=== PATIENT | female | born 1995 | race Hispanic/Latino ===

== ENCOUNTER 2017-04-08 07:46 | Observation (INO) | payer OTHER ==
[2017-04-08] VITALS (13 sets, daily range): BP systolic 120–141; BP diastolic 61–85
[~2017-04-08] VITALS: Ht 157.5 cm; Wt 104.8 kg
[~2017-04-08 07:46] MED LIST: IBUPROFEN600 MG PO; METFORMIN500 MG PO; PRE-NATAL PO
[2017-04-08 08:39] LABS: BARBITURATES NEGATIVE (NEGATIVE); COCAINE NEGATIVE (NEGATIVE); METHADONE NEGATIVE (NEGATIVE); OXCYCODONE NEGATIVE (NEGATIVE); TETRAHYDROCANNABIONOL NEGATIVE (NEGATIVE); TRICYLIC ANTIDEPRESSANTS NEGATIVE (NEGATIVE)
[2017-04-08 08:40] LABS: URINE BILIRUBIN - DIPSTICK NEGATIVE (NEGATIVE); URINE BLOOD DIPSTICK NEGATIVE (NEGATIVE); URINE CLARITY CLEAR; URINE COLOR YELLOW; URINE GLUCOSE - DIPSTICK NEGATIVE (NEGATIVE); URINE KETONE NEGATIVE (NEGATIVE); URINE LEUK ESTERASE NEGATIVE (NEGATIVE); URINE NITRITE - DIPSTICK NEGATIVE (Negative); URINE PH 5.5 (4.5-8.0); URINE PROTEIN - DIPSTICK 100 mg/dL (NEG-TRACE); URINE SPECIFIC GRAVITY >=1.030; URINE UROBILINOGEN - DIPSTICK 0.2 E.U./dL (0.2)
[2017-04-08] MEDS ORDERED: FERR SULFATE325 MG PO (09:25)
[2017-04-08 09:27] LABS: URINE SQUAMOUS EPITHELIAL CELL FEW EPI/hpf (0-FEW)
[2017-04-08 10:14] LABS: HEMATOCRIT 33.1 % (37.0-47.0); HEMOGLOBIN 11.1 g/dl (12.0-16.0); IMMATURE GRANULOCYTES 0.6 % (0.0-1.0); MEAN CELL VOLUME 84.9 fL CALC (80.0-100.0); MEAN CORPUSCULAR HGB 28.5 pG CALC (26.0-32.0); MEAN CORPUSCULAR HGB CONC 33.5 g/L CALC (32.0-36.0); NEUT# 7.26 thou/uL (2.00-7.15); RED BLOOD COUNT 3.9 mill/uL (4.20-5.60); RED CELL DISTRI WIDTH 14.1 % (11.5-15.5)
[2017-04-08 10:34] LABS: ALBUMIN 3.3 g/dL (3.2-5.0); ALKALINE PHOSPHATASE 280 u/l (38-126); ANION GAP 13 (6-22 (CALC)); BILIRUBIN, TOTAL 0.5 mg/dL (0.0-1.4); BUN 10 mg/dL (7-17); BUN/CREATININE RATIO 23 (12-20 (CALC)); CALCIUM 9.2 mg/dL (8.4-10.2); CARBON DIOXIDE 21 mmol/l (22-30); CHLORIDE 106 mmol/l (95-108); CREATININE 0.4 mg/dL (0.5-1.0); GFR > 60 ML/MIN (>=60 (CALC)); GFR FOR AFR.AMER. > 60 ML/MIN (>=60 (CALC)); GLUCOSE 89 mg/dL (65-105); POTASSIUM 4.1 mmol/l (3.5-5.1); SGOT/AST 23 u/l (14-36); SGPT/ALT 27 u/l (9-52); SODIUM 136 mmol/l (137-146); TOTAL PROTEIN 6.2 g/dL (6.3-8.2)
== END 2017-04-08 16:00 | disposition home or self-care (01) | DRG 781 ==
LOC: OB 07:46
PROC: 3E0P3VZ Introduction of Hormone into Female Reproductive, Percutaneous Approach (ICD-10-PCS; principal; 2017-04-08)
DX: O24.415 Gestational diabetes mellitus in pregnancy, controlled by oral hypoglycemic drugs (principal); O99.213 Obesity complicating pregnancy, third trimester; E66.01 Morbid (severe) obesity due to excess calories; O61.0 Failed medical induction of labor; Z3A.39 39 weeks gestation of pregnancy
CPT/HCPCS: G0378

== ENCOUNTER 2017-04-17 10:25 | Inpatient (IN) | payer OTHER ==
[~2017-04-17] VITALS: Ht 154.9 cm; Wt 104.0 kg
[2017-04-17] VITALS (23 sets, daily range): BP systolic 114–167; BP diastolic 41–94
--- NOTE | 2017-04-17 10:10 | NUR ---
PATIENT TO UNIT FROM HOME IN STABLE CONDITION ACCOMPANIED BY HER S/O. WEIGHT AND HEIGHT OBTAINED. HISTORY PER PART A. STATES HER CONTRACTIONS STARTED YESTERDAY BUT GOT STRONGER THIS AM AT 0500. WILL ASSESS AND NOTIFY MD AGUILERA.
[~2017-04-17 10:25] MED LIST changes: +FERR SULFATE325 MG PO
--- NOTE | 2017-04-17 11:48 | NUR ---
contractions noted. sve done as charted. dr harris notified via cell phone. new orders received to be commenced.
[2017-04-17 12:54] LABS: HEMATOCRIT 35.9 % (37.0-47.0); IMMATURE GRANULOCYTES 0.8 % (0.0-1.0); MEAN CELL VOLUME 85.9 fL CALC (80.0-100.0); MEAN CORPUSCULAR HGB 28.7 pG CALC (26.0-32.0); MEAN CORPUSCULAR HGB CONC 33.4 g/L CALC (32.0-36.0); NEUT# 7.12 thou/uL (2.00-7.15); RED BLOOD COUNT 4.18 mill/uL (4.20-5.60)
[2017-04-17 13:11] LABS: ALBUMIN 3.6 g/dL (3.2-5.0); ALKALINE PHOSPHATASE 333 u/l (38-126); ANION GAP 14 (6-22 (CALC)); BILIRUBIN, TOTAL 0.5 mg/dL (0.0-1.4); BUN 10 mg/dL (7-17); BUN/CREATININE RATIO 23 (12-20 (CALC)); CALCIUM 9.3 mg/dL (8.4-10.2); CARBON DIOXIDE 20 mmol/l (22-30); CHLORIDE 107 mmol/l (95-108); CREATININE 0.4 mg/dL (0.5-1.0); GFR > 60 ML/MIN (>=60 (CALC)); GFR FOR AFR.AMER. > 60 ML/MIN (>=60 (CALC)); GLUCOSE 99 mg/dL (65-105); POTASSIUM 4.5 mmol/l (3.5-5.1); SGOT/AST 30 u/l (14-36); SGPT/ALT 35 u/l (9-52); SODIUM 137 mmol/l (137-146); TOTAL PROTEIN 6.8 g/dL (6.3-8.2)
--- NOTE | 2017-04-17 13:53 | NUR ---
LATE DECELERATION NOTED AFTER VAGINAL EXAM AND AROM. DR ON UNIT AWARE. WILL CONTINUE TO OBSERVE.
--- NOTE | 2017-04-17 15:35 | NUR ---
pain 10/10. medicated for same as requested. effects and side effects discussed prior to administration.
--- NOTE | 2017-04-17 16:52 | NUR ---
sve done to assess labor progress. same as last exam. dr harris to be notified.
--- NOTE | 2017-04-17 17:05 | NUR ---
DR RUCKER NOTIFIED OF SVE. NEW ORDERS RECEIVED TO BE COMMENCED. OR STAFF NOTIFIED VIA NURSING STATION JAILER OF PENDING SECTION DELIVERY.
--- NOTE | 2017-04-17 17:20 | NUR ---
SHAVE PREP DONE BY MYSELF WITH CLIPPERS. PATIENT TOLERATED SAME WELL.
--- NOTE | 2017-04-17 17:30 | NUR ---
DR RUCKER ON UNIT. SVE SAME LAST. PREOP IVB OF LR COMMENCED. PREOP MEDICATIONS DISCUSSED WITH PATIENT WHO VERBALISE UNDERSTANDING.
--- NOTE | 2017-04-17 17:55 | NUR ---
PREOP MEDS GIVEN. SEE EMAR. PATIENT TAKED TO OR IN WC BY HARBOUR MASTER. SEE DELIVERY ROOM RECORD.
--- NOTE | 2017-04-17 18:50 | NUR ---
REPORT RECEIVED FROM KAYKAY KING RN ON PT STATUS. PT REMAINS IN OR AT THIS TIME.
--- NOTE | 2017-04-17 20:15 | NUR ---
Pt received from PACU jerry mcknight. Transferred to bed with 4 assistance. Scd's remain in place. Contreras catheter draining dark sandi urine. Leg strap in place holding catheter. IV infusing, not on med pump. FF at 2 above umbilicus with moderate rubra, no blood clots noted. 2016: IV tubing placed on med pump at 125cc/hr.
--- NOTE | 2017-04-17 21:45 | NUR ---
Pt remains supine in bed. IV infusing per med pump at 125cc/hr. Contreras catheter continues to drain dark sandi urine. Pt denies pain. Abdominal dressing remains dry and intact. Fundus firm with massage. Significant other remains at bedside. continues to be in nursery under warmer.
--- NOTE | 2017-04-17 23:00 | NUR ---
Pt remains awake. States she cannot sleep. States pain is 4/10 but okay currently. Refuses pain medication. Abdominal dressing drainage noted and marked. FF with moderate rubra, no clots. IV infusing per med pump. Contreras drains dark sandi urine.
[2017-04-18] VITALS (7 sets, daily range): BP systolic 120–143; BP diastolic 47–85
--- NOTE | 2017-04-18 01:42 | NUR ---
0110: VS stable. Temperature 100.3. Pt continues to be slightly nauseated. Takes ice chips. 0142: Toradol given for abdominal pain. See e-mar for details.
[2017-04-18 05:29] LABS: HEMATOCRIT 26.6 % (37.0-47.0); IMMATURE GRANULOCYTES 0.3 % (0.0-1.0); MEAN CELL VOLUME 85.8 fL CALC (80.0-100.0); MEAN CORPUSCULAR HGB CONC 33.8 g/L CALC (32.0-36.0); NEUT# 8.12 thou/uL (2.00-7.15); RED BLOOD COUNT 3.1 mill/uL (4.20-5.60); RED CELL DISTRI WIDTH 14.8 % (11.5-15.5)
--- NOTE | 2017-04-18 05:51 | NUR ---
0500: CBC drawn from Left anticubital without difficulty. VS stable. Linen changed and pericare performed. Pt moves well from side to side. Denies nausea or vomiting. Moderate rubra noted on peripad. No clots. Encouraged to drink po fluids if possible. Voices understanding. 0551: Medicated with Benadryl 50 mg IV for itching.
--- NOTE | 2017-04-18 06:55 | NUR ---
Bedside report given to Merline Powell RN on pt status.
--- NOTE | 2017-04-18 07:45 | NUR ---
patient in bed awake. assessment done as charted. medicated for pain as requested. denies nausea at this time. plan to ambulate, remove berman and shower. patient aware and agrees with plan. no concerns at this time.
--- NOTE | 2017-04-18 09:12 | NUR ---
patient sweating perfusely. accucheck 115mg/dl. temp 98.9. wet washcloth given for cold compress.
--- NOTE | 2017-04-18 09:30 | NUR ---
assisted out of bed. tolerated same well. berman removed. back to bed. no increase in pain. instructed to call for assistance before getting out of bed. patient verbalise understanding. s/o at bedside.
--- NOTE | 2017-04-18 11:35 | NUR ---
sitting up in bed eating lunch. verbalise no concerns at this time. familt at bedside.
--- NOTE | 2017-04-18 12:50 | NUR ---
assisted to restroom. voided without difficulty. tolerated same well. ivf discontinued. ambulation encouraged as tolerated. family at bedside. no concerns at this time.
--- NOTE | 2017-04-18 15:16 | NUR ---
sitting up in bed awake. verbalises pain relief. patient encouraged to ambulate as tolerated and increase oral fluid intake as tolerated.
--- NOTE | 2017-04-18 17:03 | NUR ---
PATIENT SITTING UP IN CHAIR AT BEDSIDE. VITAL SIGNS WNL. NO CONCERNS AT THIS TIME. S/O AT BEDSIDE.
--- NOTE | 2017-04-18 18:55 | NUR ---
in room with family. no concerns. end of shift report given to barbara cooper.
--- NOTE | 2017-04-18 19:00 | NUR ---
REPORT RECEIVED FROM RORO CHEEK. PT IS AWAKE, ALERT AND UP TO BATHROOM WHEN ENTERING. SISTER AT BEDSIDE HOLDING INFANT. CALL LIGHT IN REACH. RECEIVED IN REPORT PT WAS ENCOURAGED TO DRINK PLENTY OF WATER TO HELP MOVE BOWELS. PT WATER STILL FULL. GENTLE ENCOURAGEMENT REITTERATED. WILL CONTINUE TO MONITOR.
--- NOTE | 2017-04-18 23:50 | NUR ---
IN TO CHECK ON PATIENT. IN BED WITH EYES CLOSED, BUT AWAKENS EASILY. VSS. DENIES ANY NEEDS AT THIS TIME.
[2017-04-19 05:12] VITALS: BP 139/86
--- NOTE | 2017-04-19 05:12 | NUR ---
IN TO CHECK ON PATIENT. VS TAKEN. STABLE CHARTED. PT C/O. MEDICATED PER AUG. GIVEN TO HOLD BY NURSERY NURSE. ADVISED PATIENT TO CALL AFTER FEEDING FOR LAB DRAWS. ENCOURAGED TO CONTINUE INCENTIVE SPIROMETRY AND DRINKING FLUIDS. OFFERED TO FRESHEN UP WATER, PT DECLINED.
--- NOTE | 2017-04-19 06:29 | NUR ---
PT SITTING UP IN BED WATCHING TIGR VIDEOS. DENIES ANY NEEDS AT THIS TIME. PT GIVEN PATIENT EDUCATION INFO ON BREAST CARE OF NON MOM. REPORT PREPARED FOR ONCOMING SHIFT.
--- NOTE | 2017-04-19 07:00 | NUR ---
REPORT RECEIVED IN PT ROOM, PT SITS ON SIDE OF BED, S/O AT SIDE.
--- NOTE | 2017-04-19 07:17 | NUR ---
PT MEDICATED FOR PAIN, ENC TO SIP WATER FREQUENTLY, DRINK FLUIDS. PT STATES SHE HAS NO PROBLEM URINATING.
--- NOTE | 2017-04-19 08:00 | NUR ---
PT STATES PAIN MED HELPED, SERVED MEAL.
[2017-04-19 09:30] VITALS: BP 125/71
--- NOTE | 2017-04-19 09:35 | NUR ---
PT SITS IN CHAIR, HOLDING , WATER PROVIDED.
--- NOTE | 2017-04-19 11:35 | NUR ---
PT HAS BEEN OOB IN ROOM, STATES SHE HAS BEEN ABLE TO PASS GAS, ABD SOFT. NOW SITS IN BED.
--- NOTE | 2017-04-19 12:26 | NUR ---
SITS IN BED, MEDICATED FOR PAIN, OFFERED MOTRIN OR LORTAB, PT CHOOSES LORTAB.
[2017-04-19 13:45] VITALS: BP 119/74
--- NOTE | 2017-04-19 13:48 | NUR ---
SITS ON SIDE OF BED, STATES PAIN MED HELPED.
--- NOTE | 2017-04-19 14:33 | NUR ---
SITS IN BED FEEDING .
--- NOTE | 2017-04-19 18:22 | NUR ---
SITS IN CHAIR, HOLDING INFANT, MEDICATED FOR PAIN WITH MOTRIN.
[2017-04-19 18:28] VITALS: BP 130/68
[2017-04-19 19:00] VITALS: BP 133/57
--- NOTE | 2017-04-19 19:00 | NUR ---
RN in for initial assessment, pt changing baby. RN discussed need to ambulate in hallway tonight, pt states has had a bowel movement, pt states pain 4/10 so RN disucssed medication timing, medicated with Lortab and wrote next dose for Motrin and Lortab on white board in her room. Pt busy with baby, RN will assess when blood sugar is due at 2000.
--- NOTE | 2017-04-19 20:05 | NUR ---
Initial shift assessment completed. Pt with low transverse abdominal incision well approximated without redness, swelling or drainage, steri strips in place. Fundus firm at U/2, light rubra lochia without clots. Pain 2/10 after Lortab. VS stable, pt ambulating in room, RN encouraged her to walk in the [place]. Pt caring for baby well.
[2017-04-19 23:06] VITALS: BP 133/68
--- NOTE | 2017-04-20 02:11 | NUR ---
RN in room several times encouraging pt to rest/sleep. Pt still awake, texting or doing something on her phone, watching TV, dealing with the baby. Spouse asleep in pts bed.
--- NOTE | 2017-04-20 05:17 | NUR ---
Pt asleep without distress, baby asleep in crib.
--- NOTE | 2017-04-20 07:20 | NUR ---
SITS IN BED, MEDICATED FOR PAIN. S/O AT SIDE.
[2017-04-20 08:55] VITALS: BP 129/75
--- NOTE | 2017-04-20 09:00 | NUR ---
PT HAS BEEN OOB IN ROOM, STATES SHE HAS BEEN PASSING GAS. ENC TO CONTINUE DRINKING FLUIDS.
--- NOTE | 2017-04-20 09:30 | NUR ---
DR RUCKER IN TO SEE PT, PLAN OF CARE DISCUSSED.
[2017-04-20] MEDS ORDERED: IBUPROFEN600 MG PO (10:15)
[2017-04-20] MEDS ORDERED: LORTAB 7.57.5 MG PO (10:17)
--- NOTE | 2017-04-20 11:30 | NUR ---
PT SITS IN CHAIR.
--- NOTE | 2017-04-20 12:30 | NUR ---
PT PREPARES FOR DISCHARGE.
--- NOTE | 2017-04-20 13:48 | NUR ---
Discharge instructions given and reviewed. Pt. verbalizes understanding. Discharged in good condition via Wheelchair to Home with infant in carseat accompanied by significant other, escorted by Alcira Beltran rn.
== END 2017-04-20 13:48 | disposition home or self-care (01) | DRG 765 ==
LOC: OB 10:25 → OBOP 10:25 → OB 11:48
PROVIDERS: ADMIT Obstetrics & Gynecology; ATTEND Obstetrics & Gynecology
PROC: 10D00Z1 Extraction of Products of Conception, Low, Open Approach (ICD-10-PCS; principal; 2017-04-17)
DX: O24.425 Gestational diabetes mellitus in childbirth, controlled by oral hypoglycemic drugs (principal); Z68.41 Body mass index [BMI] 40.0-44.9, adult; O64.0XX0 Obstructed labor due to incomplete rotation of fetal head, not applicable or unspecified; O77.0 Labor and delivery complicated by meconium in amniotic fluid; O62.1 Secondary uterine inertia; O99.214 Obesity complicating childbirth; E66.9 Obesity, unspecified; Z3A.40 40 weeks gestation of pregnancy; Z37.0 Single live birth
CPT/HCPCS: J2270

== ENCOUNTER 2017-10-31 03:34 | Emergency (ER) | payer SELFPAY ==
[~2017-10-31] VITALS: Ht 154.9 cm; Wt 94.4 kg
[~2017-10-31 03:34] MED LIST changes: +LORTAB 7.57.5 MG PO
[2017-10-31 03:40] VITALS: BP 140/94
[2017-10-31 04:07] LABS: HEMATOCRIT 40.1 % (37.0-47.0); HEMOGLOBIN 13.8 g/dl (12.0-16.0); IMMATURE GRANULOCYTES 0.2 % (0.0-1.0); MEAN CELL VOLUME 83.4 fL CALC (80.0-100.0); MEAN CORPUSCULAR HGB 28.7 pG CALC (26.0-32.0); MEAN CORPUSCULAR HGB CONC 34.4 g/L CALC (32.0-36.0); NEUT# 11.58 thou/uL (2.00-7.15); RED BLOOD COUNT 4.81 mill/uL (4.20-5.60); RED CELL DISTRI WIDTH 12.5 % (11.5-15.5)
[2017-10-31] MEDS ORDERED: AUGMENTIN875TAB PO (04:25)
== END 2017-10-31 04:59 | disposition home or self-care (01) | DRG 153 ==
LOC: ED 03:34
PROVIDERS: Family Medicine
DX: J02.9 Acute pharyngitis, unspecified (principal); R05 Cough; R50.9 Fever, unspecified; R09.81 Nasal congestion

== ENCOUNTER 2017-11-22 02:54 | Emergency (ER) | payer SELFPAY ==
[~2017-11-22] VITALS: Ht 154.9 cm; Wt 92.2 kg
[~2017-11-22 02:54] MED LIST changes: +AUGMENTIN875TAB PO
[2017-11-22] MEDS ORDERED: BENADRYL 50MG C50 MG PO (03:41)
[2017-11-22 04:06] VITALS: BP 130/77
[2017-11-23] MEDS ORDERED: DELTASONE20 MG PO (18:23)
== END 2017-11-22 04:21 | disposition home or self-care (01) | DRG 607 ==
LOC: ED 02:54
DX: L29.9 Pruritus, unspecified (principal); E11.9 Type 2 diabetes mellitus without complications

== ENCOUNTER 2017-11-23 17:59 | Emergency (ER) | payer SELFPAY ==
[~2017-11-23] VITALS: Ht 154.9 cm; Wt 91.4 kg
[~2017-11-23 17:59] MED LIST changes: +BENADRYL 50MG C50 MG PO
[2017-11-23] MEDS ORDERED: DELTASONE20 MG PO (18:23)
[2017-11-23 18:30] VITALS: BP 147/78
== END 2017-11-23 18:34 | disposition home or self-care (01) | DRG 607 ==
LOC: ED 17:59
DX: L23.9 Allergic contact dermatitis, unspecified cause (principal)

== ENCOUNTER 2018-10-28 10:19 | Emergency (ER) | payer SELFPAY ==
[~2018-10-28] VITALS: Ht 154.9 cm; Wt 90.0 kg
[~2018-10-28 10:19] MED LIST changes: +DELTASONE20 MG PO
[2018-10-28] MEDS ORDERED: AMOXICILLIN875 MG PO (11:09)
[2018-10-28 11:20] VITALS: BP 135/74
== END 2018-10-28 11:20 | disposition home or self-care (01) | DRG 153 ==
LOC: ED 10:19
DX: H66.93 Otitis media, unspecified, bilateral (principal); J02.9 Acute pharyngitis, unspecified; R50.9 Fever, unspecified; R05 Cough; E11.9 Type 2 diabetes mellitus without complications

== ENCOUNTER 2019-02-15 16:00 | Emergency (ER) | payer SELFPAY ==
[~2019-02-15] VITALS: Ht 154.9 cm; Wt 85.9 kg
[~2019-02-15 16:00] MED LIST changes: +AMOXICILLIN875 MG PO
[2019-02-15] MEDS ORDERED: JANUVIA50 MG PO (16:10)
[2019-02-15 16:34] LABS: HEMATOCRIT 40.2 % (37.0-47.0); HEMOGLOBIN 13.9 g/dl (12.0-16.0); IMMATURE GRANULOCYTES 1.2 % (0.0-5.0); MEAN CELL VOLUME 85.2 fL CALC (80.0-100.0); MEAN CORPUSCULAR HGB 29.4 pG CALC (26.0-32.0); MEAN CORPUSCULAR HGB CONC 34.6 g/L CALC (32.0-36.0); NEUT# 2.1 thou/uL (2.00-7.15); RED BLOOD COUNT 4.72 mill/uL (4.20-5.60); RED CELL DISTRI WIDTH 11.9 % (11.5-15.5)
[2019-02-15 16:48] LABS: BUN 11 mg/dL (7-17); BUN/CREATININE RATIO 27 (12-20 (CALC)); CHLORIDE 99 mmol/l (95-108); CREATININE 0.4 mg/dL (0.5-1.0); GFR > 60 ML/MIN (>=60 (CALC)); GFR FOR AFR.AMER. > 60 ML/MIN (>=60 (CALC)); POTASSIUM 4.7 mmol/l (3.5-5.1); SODIUM 136 mmol/l (137-146)
[2019-02-15 16:49] LABS: ANION GAP 16 (6-22 (CALC)); CARBON DIOXIDE 26 mmol/l (22-30)
[2019-02-15 18:04] VITALS: BP 112/59
== END 2019-02-15 18:04 | disposition home or self-care (01) | DRG 313 ==
LOC: ED 16:00
PROVIDERS: Family Medicine
DX: R07.9 Chest pain, unspecified (principal); R06.02 Shortness of breath

== ENCOUNTER 2021-02-12 09:45 | Emergency (ER) | payer MEDICAID ==
[~2021-02-12] VITALS: Ht 154.9 cm; Wt 82.0 kg
[~2021-02-12 09:45] MED LIST changes: +JANUVIA50 MG PO
[2021-02-12 11:01] LABS: URINE BILIRUBIN - DIPSTICK NEGATIVE (NEGATIVE); URINE BLOOD DIPSTICK NEGATIVE (NEGATIVE); URINE COLOR YELLOW; URINE GLUCOSE - DIPSTICK NEGATIVE (NEGATIVE); URINE KETONE 15 mg/dL (NEGATIVE); URINE LEUK ESTERASE TRACE (NEGATIVE); URINE PH 6.5 (4.5-8.0); URINE PROTEIN - DIPSTICK NEGATIVE (NEG-TRACE); URINE SPECIFIC GRAVITY 1.025; URINE UROBILINOGEN - DIPSTICK 0.2 E.U./dL (0.2)
[2021-02-12 11:03] LABS: URINE NITRITE - DIPSTICK NEGATIVE (Negative)
[2021-02-12] MEDS ORDERED: METFORMIN HCL1000 MG PO (12:17)
[2021-02-12] MEDS ORDERED: LEVEMIR FL100 UNIT/M SC (12:17)
[2021-02-12 12:26] VITALS: BP 120/70
== END 2021-02-12 12:26 | disposition home or self-care (01) ==
LOC: ED 09:45
PROVIDERS: Family Medicine
DX: O99.891 Other specified diseases and conditions complicating pregnancy (principal); M54.5 Low back pain; O24.311 Unspecified pre-existing diabetes mellitus in pregnancy, first trimester; E11.9 Type 2 diabetes mellitus without complications; Z3A.14 14 weeks gestation of pregnancy; Z79.84 Long term (current) use of oral hypoglycemic drugs

== ENCOUNTER 2022-10-07 05:11 | Emergency (ER) | payer MEDICAID ==
[~2022-10-07] VITALS: Ht 154.9 cm; Wt 87.0 kg
[2022-10-07] VITALS (8 sets, daily range): BP systolic 102–119; BP diastolic 64–82
[~2022-10-07 05:11] MED LIST changes: +LEVEMIR FL100 UNIT/M SC; +METFORMIN HCL1000 MG PO
[2022-10-07 05:47] LABS: URINE BILIRUBIN - DIPSTICK NEGATIVE (NEGATIVE); URINE BLOOD DIPSTICK TRACE-INTACT (NEGATIVE); URINE COLOR YELLOW; URINE GLUCOSE - DIPSTICK >=1000 mg/dL (NEGATIVE); URINE KETONE NEGATIVE (NEGATIVE); URINE LEUK ESTERASE NEGATIVE (NEGATIVE); URINE PROTEIN - DIPSTICK NEGATIVE (NEG-TRACE); URINE UROBILINOGEN - DIPSTICK 0.2 E.U./dL (0.2)
[2022-10-07 05:52] LABS: URINE NITRITE - DIPSTICK NEGATIVE (Negative)
[2022-10-07 06:43] LABS: BASO% 0.3 % (0-3); EOS% 0.3 % (0-8); HEMOGLOBIN 13.7 g/dl (12.0-16.0); IMMATURE GRANULOCYTES 0.2 % (0.0-5.0); LYMPH% 23.5 % (15-41); MEAN CELL VOLUME 85.1 fL CALC (80.0-100.0); MEAN CORPUSCULAR HGB 28.4 pG CALC (26.0-32.0); MEAN CORPUSCULAR HGB CONC 33.4 g/dL CAL (32.0-36.0); MONO% 4.6 % (2-13); NEUT# 4.14 thou/uL (2.00-7.15); NEUT% 71.1 % (42-76); RED BLOOD COUNT 4.82 mill/uL (4.20-5.60); RED CELL DISTRI WIDTH 11.9 % (11.5-15.5)
[2022-10-07 07:00] LABS: ANION GAP 15 (6-22 (CALC)); BILIRUBIN, TOTAL 0.5 mg/dL (0.02-1.3); BUN 11 mg/dL (7-17); BUN/CREATININE RATIO 22 (12-20 (CALC)); CARBON DIOXIDE 27 mmol/l (22-30); CHLORIDE 98 mmol/l (95-108); CREATININE 0.5 mg/dL (0.5-1.0); GFR FOR AFR.AMER. > 60 ML/MIN (>=60 (CALC)); GFR OTHER RACES > 60 ML/MIN (>=60 (CALC)); POTASSIUM 4.5 mmol/l (3.5-5.1); SGOT/AST 41 u/l (14-36); SODIUM 136 mmol/l (137-146); TOTAL PROTEIN 7.1 g/dL (6.3-8.2)
[2022-10-07 07:08] LABS: ALBUMIN 4.4 g/dL (3.2-5.0); ALKALINE PHOSPHATASE 71 u/l (38-126)
== END 2022-10-07 08:20 | disposition home or self-care (01) ==
LOC: ED 05:11
PROVIDERS: Emergency Medicine
DX: R51.9 Headache, unspecified (principal); E11.9 Type 2 diabetes mellitus without complications; Z79.84 Long term (current) use of oral hypoglycemic drugs; Z20.822 Contact with and (suspected) exposure to COVID-19